=== PATIENT | female | born 1990 | race Caucasian/White ===

== ENCOUNTER 2017-09-08 23:17 | Emergency (ER) | payer OTHER ==
[2017-09-08 23:21] VITALS: BP 128/81; PULSE 70; TEMP 98; BMI 31.2
--- NOTE | 2017-09-08 23:44 | PDOC ---
History of Present Illness - General Chief Complaint: Laceration Stated Complaint: LACERATION Time Seen by Provider: 09/08/17 23:24 History Source: Patient Exam Limitations: No Limitations - History of Present Illness Initial Comments: 09/08/17 23:39 This is a 27-year-old woman without significant past medical history presents emergency Department with wound to her left hand sustained while using a drill. Patient states she was using a drill is a screwdriver and the drill bit slipped off the head of the screw striking her in her left hand creating a circular wound to the webbing between the index and thumb of her left hand. She immediately washed her hands at the time number states it emergency department for evaluation. Patient states she is up-to-date with her tetanus receiving her last tetanus shot in December 2016. Past History - Past Medical History Allergies/Adverse Reactions: Allergies Allergy/AdvReac Type Severity Reaction Status Date / Time No Known Allergies Allergy Unverified 09/08/17 23:21 Home Medications: Ambulatory Orders Oxycodone HCl/Acetaminophen [Percocet 5-325 mg Tablet] 1 each PO Q4H PRN #10 tablet 04/30/11 COPD: No - Immunization History Immunization Up to Date: Yes - Suicide/Smoking/Psychosocial Hx Smoking Status: No Smoking History: Never smoked Number of Cigarettes Smoked Daily: 0 Cigars Per Day: 0 Hx Alcohol Use: Yes (occasion) Drug/Substance Use Hx: No Review of Systems - Review of Systems Able to Perform ROS?: Yes Is the patient limited [place] Citizen proficient: No Constitutional: No: Symptoms Reported HEENTM: No: Symptoms Reported Respiratory: No: Symptoms reported Cardiac (ROS): No: Symptoms Reported ABD/GI: No: Symptoms Reported : No: Symptoms Reported Musculoskeletal: No: Symptoms Reported Integumentary: Yes: See HPI Neurological: No: Symptoms reported *Physical Exam - Vital Signs Last Vital Signs Temp Pulse Resp BP Pulse Ox 98.0 F 70 18 128/81 99 09/08/17 23:18 09/08/17 23:18 09/08/17 23:18 09/08/17 23:18 09/08/17 23:18 - Physical Exam General Appearance: Yes: Appropriately Dressed. No: Apparent Distress Respiratory/Chest: positive: Lungs Clear, Normal Breath Sounds. negative: Respiratory Distress, Accessory Muscle Use Cardiovascular: positive: Regular Rhythm, Regular Rate. negative: Murmur Extremity: positive: Other (Less than 0.25 cm circular superficial wound to the thenar webspace of the left hand. Macerated skin noted.) Neurologic: positive: Alert, Motor Strength 5/5 Medical Decision Making - Medical Decision Making 09/08/17 23:44 A/P: 27-year-old woman without medical history with wound to the thenar space of the left hand Less than 0.25 cm circular superficial wounds noted to the thenar space of the left hand Macerated skin noted Full range of motion of all phalanges of the left hand Up-to-date with tetanus Due to the superficial and macerated nature of the injury, there are no wound edges to approximate for wound repair. Wound irrigated Dry sterile dressing applied Discharge *DC/Admit/Observation/Transfer Diagnosis at time of Disposition: Laceration - Discharge Dispostion Disposition: HOME Condition at time of disposition: Stable Decision to Admit order: No - Referrals - Patient Instructions Additional Instructions: Keep wound clean and dry Return to emergency Department or private physician in 5-7 days for wound check May use Tylenol or Motrin for pain relief Return immediately to emergency department for redness, swelling, pain, or signs of infection - Post Discharge Activity
== END 2017-09-09 00:05 | disposition home or self-care (01) ==
LOC: JER 23:17
DX: S61.412A Laceration without foreign body of left hand, initial encounter (principal); W29.8XXA Contact with other powered hand tools and household machinery, initial encounter; Y93.89 Activity, other specified; Y92.89 Other specified places as the place of occurrence of the external cause; Y99.8 Other external cause status
CPT/HCPCS: 99281-25